=== PATIENT | female | born 1970 | race Caucasian/White ===

== ENCOUNTER → 2017-06-09 | Outpatient (CLI) | payer BC | END | disposition home or self-care (01) | LOC: LAB SHORT 14:42 → OLS 14:42 | PROVIDERS: Nurse Practitioner Women's Health | DX: Z12.4 Encounter for screening for malignant neoplasm of cervix (principal); Z91.89 Other specified personal risk factors, not elsewhere classified | CPT/HCPCS: 87624; G0123 ==

== ENCOUNTER → 2018-10-02 | Outpatient (CLI) | payer BC ==
[2018-10-04 16:07] LABS: HPV 16 Negative (Negative); HPV 18 Negative (Negative); HPV OTHER HR TYPES Negative (Negative)
== END | disposition home or self-care (01) ==
LOC: LAB SHORT 09:26 → LAB 09:26
PROVIDERS: Nurse Practitioner Women's Health
DX: Z12.4 Encounter for screening for malignant neoplasm of cervix (principal); Z91.89 Other specified personal risk factors, not elsewhere classified
CPT/HCPCS: 87624; G0123

== ENCOUNTER → 2019-09-25 | Outpatient (CLI) | payer BC | END | disposition home or self-care (01) | LOC: LAB SHORT 11:05 → LAB 11:05 | DX: L02.91 Cutaneous abscess, unspecified (principal) | CPT/HCPCS: 87070; 87075 ==

== ENCOUNTER 2020-09-23 11:39 | Day surgery (SDC) | payer BC ==
[~2020-09-23] VITALS: Ht 154.9 cm; Wt 97.8 kg
[~2020-09-23 11:39] MED LIST: AMLO5 PO; FISH OIL 1,2001 EAC7 PO; GLIM4 PO; HYDCHL25 PO; LEVOTHYROXINE150 MC3 PO; LOSARTAN POTAS100 M1 PO; METF500 PO; POTA10T PO; PRAVASTATIN SOD40 MG PO; QVAR REDIHALE10.6 G2; Ventolin/Prove6.7 GM INH
--- NOTE | 2020-09-23 12:47 | NUR ---
09/23/20 1246 Edna Lugo CALL LIGHT WITHIN REACH
== END 2020-09-23 14:35 | disposition home or self-care (01) ==
LOC: ORSCSDS 11:39
PROVIDERS: Obstetrics & Gynecology
PROC: 0UB98ZX Excision of Uterus, Via Natural or Artificial Opening Endoscopic, Diagnostic (ICD-10-PCS; principal; 2020-09-23 13:00)
PROC: 0UDB8ZX Extraction of Endometrium, Via Natural or Artificial Opening Endoscopic, Diagnostic (ICD-10-PCS; principal; 2020-09-23 13:00)
DX: N92.0 Excessive and frequent menstruation with regular cycle (principal); D25.9 Leiomyoma of uterus, unspecified; D50.9 Iron deficiency anemia, unspecified; I10 Essential (primary) hypertension; J45.909 Unspecified asthma, uncomplicated; E78.5 Hyperlipidemia, unspecified; E03.9 Hypothyroidism, unspecified; E11.9 Type 2 diabetes mellitus without complications; F32.9 Major depressive disorder, single episode, unspecified; E66.9 Obesity, unspecified; Z68.41 Body mass index [BMI] 40.0-44.9, adult; Z79.84 Long term (current) use of oral hypoglycemic drugs; Z79.899 Other long term (current) drug therapy
CPT/HCPCS: 82947; 84703; 88305; J0690; J1100; J2250; J2370; J2405; J2704; J3010; J7120

== ENCOUNTER 2021-10-14 11:38 | Day surgery (SDC) | payer BC ==
[2021-10-12 09:28] LABS: BASOPHILS PERCENT AUTO 1 % (0-2); EOSINOPHILS ABSOLUTE AUTO 0.39 K/mm3 (0.00-0.68); EOSINOPHILS PERCENT AUTO 4 % (0-6); Hematocrit 39.5 % (33.0-51.0); Hemoglobin 13.5 g/dL (11.5-16.0); IMMATURE GRAN ABSOLUTE AUTO 0.03 K/mm3 (0.00-0.10); IMMATURE GRAN PERCENT AUTO 0 % (0-1); LYMPHOCYTES ABSOLUTE AUTO 2.83 K/mm3 (0.84-5.20); LYMPHOCYTES PERCENT AUTO 31 % (21-46); MONOCYTES ABSOLUTE AUTO 0.48 K/mm3 (0.16-1.47); MONOCYTES PERCENT AUTO 5 % (4-13); Mean Corpuscular HGB 29.5 pg (26.0-34.0); Mean Corpuscular HGB Conc 34.2 g/dL (31.5-36.5); Mean Corpuscular Volume 86 fL (80-100); NEUTROPHILS PERCENT AUTO 59 % (41-73); Platelet Count 234 K/mm3 (150-400); RDW Coefficient Variation 12.7 % (11.7-14.2); RDW Standard Deviation 40.2 fL (35.1-46.3); Red Blood Cell Count 4.57 M/mm3 (3.80-5.20); White Blood Cell Count 9.23 K/mm3 (4.00-11.30)
[2021-10-12 11:07] LABS: Bun/Creatinine Ratio 14.7 (12.0-20.0); Calcium, Blood 9.5 mg/dL (8.5-10.1); Creatinine, Blood 1.02 mg/dL (0.40-1.00); Potassium, Blood 3.6 mmol/L (3.5-5.5)
[~2021-10-14] VITALS: Ht 154.9 cm; Wt 95.3 kg
[~2021-10-14 11:38] MED LIST changes: +AMLO10 PO; +Flonase 0.05% N16 GM; +LORA10ER PO
--- NOTE | 2021-10-14 12:33 | NUR ---
Ambulatory in Day Surgery. History, Chart, Medications and Allergies reviewed before start of procedure.Lungs clear T/O to Auscultation. Patient confirms NPO status and agrees with scheduled surgery. Patient States Post-Procedure ride home has been arranged.
--- NOTE | 2021-10-14 18:16 | NUR ---
SHIFT SUMMARY S/P LAP ASSISTED TYREE HYSTER, 4 DERMABOND SITES CDI. PT A&OX4, VSS/RA. RUDY PO. GIRARD PATENT & DRAINING YELLOW URINE/STAT LOCK ON/OFF FLOOR. REP PAIN 03/18-[facility] PAIN MED AT THIS TIME-EDU PT RE PAIN MANAGEMENT. FAMILY AT BEDSIDE. WILL REPORT TO ONCOMING GERRY RN.
[2021-10-15 04:46] LABS: BASOPHILS ABSOLUTE AUTO 0.02 K/mm3 (0.00-0.23); BASOPHILS PERCENT AUTO 0 % (0-2); EOSINOPHILS PERCENT AUTO 0 % (0-6); Hematocrit 35.1 % (33.0-51.0); Hemoglobin 12.3 g/dL (11.5-16.0); IMMATURE GRAN ABSOLUTE AUTO 0.04 K/mm3 (0.00-0.10); IMMATURE GRAN PERCENT AUTO 0 % (0-1); LYMPHOCYTES PERCENT AUTO 17 % (21-46); MONOCYTES ABSOLUTE AUTO 0.41 K/mm3 (0.16-1.47); MONOCYTES PERCENT AUTO 4 % (4-13); Mean Corpuscular HGB 29.3 pg (26.0-34.0); Mean Corpuscular Volume 84 fL (80-100); Mean Platelet Volume 10.3 fL (9.1-12.4); NEUTROPHILS ABSOLUTE AUTO 8.09 K/mm3 (1.96-9.15); NEUTROPHILS PERCENT AUTO 78 % (41-73); Platelet Count 205 K/mm3 (150-400); RDW Coefficient Variation 12.8 % (11.7-14.2); RDW Standard Deviation 38.6 fL (35.1-46.3); White Blood Cell Count 10.36 K/mm3 (4.00-11.30)
--- NOTE | 2021-10-15 07:30 | NUR ---
SUMMARY PT TOLERATING PO. AMBULATORY.VOIDING POST GIRARD.SCANT VAG BLEED.LIGHT BRUISING TO INCS.PT REPORTS SCRATCHY THROAT S/P INTUBATION, BUT DENIES VOICE CHANGES,DAY RN TIKA AGREES TO FOLLOW UP WITH REGARDING THIS. PT ALSO VERB UNDERSTANDING OF ADVISING DR ON ROUNDING.
[2021-10-15] MEDS ORDERED: IBUP800 PO (12:15)
[2021-10-15] MEDS ORDERED: Percocet 5-3251 EACH PO (12:16)
[2021-10-15] MEDS ORDERED: PROM25 PO (12:17)
--- NOTE | 2021-10-15 12:41 | NUR ---
DISCHARGE:PACKET PRINTED AND PT EDUCATED. IV DC'D WNL, TIP INTACT. PT REPORTS THAT SHE ALREADY HAS SCRIPTS AT HOME. DENIED NEED FOR WHEELCHAIR, LEFT UNIT ON FOOT WITH AT ABOUT 1215
== END 2021-10-15 12:27 | disposition home or self-care (01) ==
LOC: ORSCMMR 11:38 → ORD 13:15 → SURS 16:47 → ORSCMMR 10-15 12:27
PROVIDERS: Obstetrics & Gynecology
PROC: 0UT94ZZ Resection of Uterus, Percutaneous Endoscopic Approach (ICD-10-PCS; principal; 2021-10-14 13:15)
PROC: 0DNU3ZZ Release Omentum, Percutaneous Approach (ICD-10-PCS; principal; 2021-10-14 13:15)
PROC: 8E0W4CZ Robotic Assisted Procedure of Trunk Region, Percutaneous Endoscopic Approach (ICD-10-PCS; principal; 2021-10-14 13:15)
PROC: 0UT74ZZ Resection of Bilateral Fallopian Tubes, Percutaneous Endoscopic Approach (ICD-10-PCS; principal; 2021-10-14 13:15)
DX: N92.0 Excessive and frequent menstruation with regular cycle (principal); N94.6 Dysmenorrhea, unspecified; D25.9 Leiomyoma of uterus, unspecified; N88.8 Other specified noninflammatory disorders of cervix uteri; N84.1 Polyp of cervix uteri; N73.6 Female pelvic peritoneal adhesions (postinfective); D50.9 Iron deficiency anemia, unspecified; E11.9 Type 2 diabetes mellitus without complications; E03.9 Hypothyroidism, unspecified; E66.9 Obesity, unspecified; Z68.39 Body mass index [BMI] 39.0-39.9, adult; K21.9 Gastro-esophageal reflux disease without esophagitis; Z79.899 Other long term (current) drug therapy; Z79.84 Long term (current) use of oral hypoglycemic drugs
CPT/HCPCS: 58571; 49329; S2900; 36415; 80048; 82947; 85025; 86850; 86900; 86901; 88307; 94640; 94664; 94760; A9270; J0690; J1100; J1885; J2250; J2370; J2405; J2704; J3010; J7120